=== PATIENT | male | born 1965 ===

== ENCOUNTER 2021-04-13 08:54 | Emergency (ER) | payer MEDICAID ==
--- NOTE | 2021-04-13 09:17 | EDM.PDOC ---
ED HPI GENERAL MEDICAL PROBLEM - General Chief Complaint: General Stated Complaint: COVID SX Time Seen by Provider: 04/13/21 09:06 - History of Present Illness INITIAL COMMENTS - FREE TEXT/NARRATIVE: 55-year-old male presents with 2 issues he has a nonhealing lesion on his Left ankle. And he was exposed to Covid the other day. Patient several weeks ago had a piece of metal fall on the medial aspect of his ankle. He had a little skin lesion there this is spread. And is not healing up. He also has shooting pain up his leg from this area as well. He has not had any fevers or chills he is using antibiotic ointment over this. Patient did have the Pfizer vaccine both doses however he was exposed to Covid the other day. He is not having any symptoms at this time. Left Lower Leg Pain Score (Numeric/FACES): 4 - Related Data Allergies Allergy/AdvReac Type Severity Reaction Status Date / Time Penicillins Allergy Rash Verified 04/13/21 09:04 Home Meds: Home Meds Aspirin [Halfprin] 81 mg PO DAILY 04/13/21 [History] Clopidogrel Bisulfate [Plavix] 75 mg PO BEDTIME 04/13/21 [History] Doxycycline [Vibra-Tabs] 100 mg PO BID #19 tab 04/13/21 [Rx] Gabapentin [Neurontin] 300 mg PO TID #30 capsule 04/13/21 [Rx] atorvaSTATin [Lipitor] 40 mg PO BEDTIME 04/13/21 [History] ED ROS GENERAL - Review of Systems Review Of Systems: See Below Constitutional: Reports: No Symptoms Respiratory: Reports: No Symptoms Cardiovascular: Reports: No Symptoms GI/Abdominal: Reports: No Symptoms ED EXAM, GENERAL - Physical Exam Exam: See Below Exam Limited By: No Limitations General Appearance: Alert, No Apparent Distress Head: Atraumatic, Normocephalic Neck: Normal Inspection, Supple, Non-Tender, Full Range of Motion Respiratory/Chest: No Respiratory Distress, Lungs Clear, Normal Breath Sounds Cardiovascular: Regular Rate, Rhythm, No Edema, No Murmur GI/Abdominal: Normal Bowel Sounds, Soft, Non-Tender Extremities: Other (He has what looks like a stasis ulcer developing medial aspect of the left foot just posterior to the medial malleolus.) Course - Vital Signs Last Recorded V/S: Last Vital Signs Temp 36.5 C 04/13/21 09:00 Pulse 80 04/13/21 09:00 Resp 16 04/13/21 09:00 BP 158/96 H 04/13/21 09:00 Pulse Ox 98 04/13/21 09:00 - Orders/Labs/Meds Orders: Active Orders 24 hr Category Date Time Status Ankle Min 3V Lt [CR] Stat Exams 04/13/21 09:23 Taken Labs: Laboratory Tests 04/13/21 Range/Units 09:20 SARS-CoV-2 RNA ([facility]) Negative (NEGATIVE) Meds: Medications Discontinued Medications Generic Name Dose Route Start Last Admin Trade Name Renaldo PRN Reason Stop Dose Admin Doxycycline Hyclate 100 mg 04/13/21 10:37 04/13/21 10:50 Doxycycline 100 Mg Cap PO 04/13/21 10:38 100 mg ONETIME ONE Administration Gabapentin 300 mg 04/13/21 10:37 04/13/21 10:50 Gabapentin 300 Mg Cap PO 04/13/21 10:38 300 mg ONETIME ONE Administration - Re-Assessments/Exams Free Text/Narrative Re-Assessment/Exam: 04/13/21 11:30 X-ray of the ankle shows no significant soft tissue changes no bony lesions. Pain management for this nerve pain is can be difficult when the patient injured this ankle before he had what sounds like nerve pain. And now this is reinjured and he is having pain that shoots up his leg much like nerve pain will use Tylenol and I will start him on Neurontin for this. To get the skin to help heal, I will put him on a course of doxycycline and this needs to be reevaluated in a week or so in the clinic. Departure - Departure Time of Disposition: 11:31 Disposition: Home, Self-Care 01 Clinical Impression: Skin ulcer of ankle, limited to breakdown of skin, Neuropraxia of left lower extremity - Discharge Information Forms: ED Department Discharge Additional Instructions: Return to the emergency room with any questions problems or worsening symptoms. Follow-up with the hospital clinic in 1 week or so call tomorrow to schedule an appointment their phone number is [phone]. [facility] up by [place] is the only pharmacy open today. They are open today from noon till 4 PM. You will the started on doxycycline this is the antibiotic you will take 1 twice daily until all gone your first dose was given here in the emergency room. You also will be started on gabapentin this is to help with nerve pain your first dose was here in the emergency room you take it 3 times daily. The dose can be increased in 1 week if needed Sepsis Event Note (ED) - Focused Exam Vital Signs: Vital Signs Temp Pulse Resp BP Pulse Ox 04/13/21 09:00 36.5 C 80 16 158/96 H 98 - My Orders Last 24 Hours: My Active Orders 04/13/21 09:23 Ankle Min 3V Lt [CR] Stat - Assessment/Plan Last 24 Hours: My Active Orders 04/13/21 09:23 Ankle Min 3V Lt [CR] Stat
[2021-04-13] MEDS ORDERED: Doxycycline 100 MG Cap PO ONE (10:37)
[2021-04-13] MEDS ORDERED: Gabapentin 300 MG Cap PO ONE (10:37)
--- NOTE | 2021-04-13 16:15 | CR ---
Left ankle: 4 views of the left ankle were obtained. Comparison: No prior ankle study is available. Plantar spur is seen. Small spur is noted at the attachment of the Achilles tendon to the calcaneus. Ankle mortise is symmetric. No acute fracture, dislocation or other bony abnormality is appreciated. No focal bony erosions are seen. Impression: 1. Calcaneal spurs. 2. No acute osseous abnormality is appreciated. Diagnostic code #2
== END 2021-04-13 12:15 | disposition home or self-care (01) ==
LOC: JD.ED 08:54
DX: S94.92XA Injury of unspecified nerve at ankle and foot level, left leg, initial encounter (principal); L97.321 Non-pressure chronic ulcer of left ankle limited to breakdown of skin; Z88.0 Allergy status to penicillin; Z79.02 Long term (current) use of antithrombotics/antiplatelets; Z79.82 Long term (current) use of aspirin; Z79.899 Other long term (current) drug therapy; Z20.822 Contact with and (suspected) exposure to COVID-19; W20.8XXA Other cause of strike by thrown, projected or falling object, initial encounter
CPT/HCPCS: 73610; 87635; 99283; A9270; U0002